=== PATIENT | male | born 2000 | race Caucasian/White ===

== ENCOUNTER 2021-08-17 08:13 | Emergency (ER) | payer SELFPAY ==
--- NOTE | 2021-08-17 08:15 | DI.RAD_ITS ---
Exam(s) XR THUMB RT EXAM: XR THUMB RT CLINICAL HISTORY: laceration. TECHNIQUE: 2D digital imaging was performed of the right finger. Three views were obtained. PA/AP, oblique, and lateral views were obtained. COMPARISON: No exams were available for comparison FINDINGS: BONES: No acute fracture is present. No bony destructive lesion is seen. JOINTS: No dislocation present. SOFT TISSUE: No radiopaque foreign bodies. Soft tissue defect and swelling of the distal thumb. IMPRESSION: No evidence of acute fracture, dislocation, or subluxation. No radiopaque foreign body. DATA REPOSITORY: RADIATION DOSE DELIVERED:
[2021-08-17 08:19] VITALS: BP 161/87; PULSE 113; RESP 16; TEMP 36.4; O2SAT 98
--- NOTE | 2021-08-17 08:30 | ED.GENADUL_ITS ---
Discharge Plan Disposition Patient Disposition: HOME Condition: Stable Discharge Details Clinical Impression: Avulsion of skin of right thumb Primary Care Provider: Unknown,Unknown ED Provider: Young Up Home Meds and New Rx's Prescriptions: No Action No Known Home Meds RF: 0 Discharge Instructions Instructions: Skin Avulsion (ED) Additional Instructions: If you have spreading redness, or severe pain return to the emergency department keep the wound covered until it is healed Medical Decision Making 21 yo male with no chronic medical problems comes in with right thumb laceration. He was repairing a window and cut his right thumb on the glass, it did not shatter and he did not fall or have other injuries. He has a skin tear over the medial side of the thumb that runs vertically. He has full extension and flexion at both joins of the thumb and intact sensation, no palpable foreign body. Will xray to evaluate for possible underlying fracture xray unremarkable, i used 6cc of 2% lidocaine to perform a digital block and cut away a piece of avulsed skin, no underlying laceration, the wound is not s uturable will need to heal by secondary intention. Discussed with pt. Will d/c and return precautions given. He did not want to stay for xray read, will call if vrad sees any concerning findings Differential Diagnosis Differential Diagnosis: laceration, fracture Imaging Data Radiologic Study: Attestation: I personally reviewed and interpreted this imaging study as follows: Imaging: X-Ray My impression: no acute findings HPI General Mode of arrival: ambulatory . Date/Time Provider Initiated Documentation: 08/17/21 08:26 . Limitations to Documentation: no limitations . Information obtained by: patient . History of Present Illness 21 year old M presents to the emergency department with the chief complaint of right thumb laceration, described as moderate, Quality is described as aching, and is localized to the right and upper extremity. Patient reports no radiation. Patient started experiencing this hour(s) (1) and it has been constant. No relieving factors improve symptom(s), No exacerbating factors reported . Patient notes no other symptoms.. Patient did receive the following treatments prior to arrival, none Related Data Home Medications Medication Instructions Recorded Confirmed Unknown [No Known Home Meds] 08/17/21 08/17/21 Allergies Allergy/AdvReac Type Severity Reaction Status Date / Time No Known Allergies Allergy Unverified 08/17/21 08:25 General Stated Complaint: Laceration JULIAN: 4 Review of Systems All systems reviewed & are unremarkable except as noted in HPI and below Constitutional Constitutional: Denies chills, Denies fever(s) and Denies weakness Cardiovascular Cardiovascular: Denies chest pain and Denies dyspnea Respiratory Respiratory: Denies cough and Denies dyspnea Gastrointestinal Gastrointestinal: Denies abdominal pain, Denies nausea and Denies vomiting Musculoskeletal Musculoskeletal: Denies joint swelling Neurologic Neurologic: Denies weakness Psychiatric Psychiatric: Denies depression [facility] Social History Smoking risk assessment performed?: No Substance use type: amphetamines Exam Const General: no acute distress Orientation: alert HENMT Head: normal to inspection Ears: external ears normal General nose exam: external nose normal Mouth: moist mucous membranes Eyes General: appearance normal, both eyes and all related structures Neck Neck: normal visual inspection Resp Effort & Inspection: normal respiratory effort and able to speak in complete sentences Cardio Rate: regular rate Skin General skin exam: no rashes or lesions noted Neuro General: patient alert and patient oriented x3 Extrem General: full ROM and capillary refill normal Psych Mental Status: mental status grossly normal Course Vital Signs Vital signs: Vital Signs Temperature 36.4 C L 08/17/21 08:19 Pulse 113 H 08/17/21 08:19 Respiratory Rate 16 08/17/21 08:19 Blood Pressure 161/87 H 08/17/21 08:19 Pulse Oximetry 98 08/17/21 08:19 Temperature 36.4 C L 08/17/21 08:19 Pulse 113 H 08/17/21 08:19 Respiratory Rate 16 08/17/21 08:19 Respiratory Effort 08/17/21 08:19 Blood Pressure 161/87 H 08/17/21 08:19 Blood Pressure Position Sitting 08/17/21 08:19 Pulse Oximetry 98 08/17/21 08:19 Oxygen Delivery Method Room Air 08/17/21 08:19 Oxygen Flow Rate 0 08/17/21 08:19 Pain Level 6 08/17/21 08:19 PAWSS Have you Been Recently Intoxicated or Drunk Within the Last 30 days?: Yes Have you Ever Experienced Previous Episodes of Alcohol Withdrawal?: No Have you ever Experienced Withdrawal Seizures?: No Have you ever Experienced Delirium Tremens(DT)s?: No Have you ever undergone Alcohol Rehabilitation Treatment (i.e, inpt ot outpatient treatment programs)?: No Have you ever Experienced Blackouts?: No Have you ever Combined Alcohol with other Downers within the last 90 days?: No Have you ever Combined Alcohol with any other Substance of Abuse during the last 90 days?: Yes Positive Blood Alcohol level on Presentation? [PCS.BAL]: No Evidence of Increased Autonomic Activity (i.e. HR>120, tremor, sweating, agitation, nausea)?: No Result: 3
[2021-08-17] MEDS: Tetanus & Diphtheria Tox,ADULT 0.5 ML VIAL IM (09:37)
[2021-08-17 09:41] VITALS: PULSE 68; RESP 12; O2SAT 98
--- NOTE | 2021-08-17 10:07 | DI.VRAD_ITS ---
PROCEDURE INFORMATION: Exam: XR Right Finger(s) Exam date and time: 08/17/2021 8:30 AM Age: 21 years old Clinical indication: Injury or trauma; Other: Laceration; Wound; Finger; Right; Thumb TECHNIQUE: Imaging protocol: XR Right fingers. Views: Minimum 2 views. COMPARISON: No relevant prior studies available. FINDINGS: Bones/joints: Normal. No fracture, dislocation or osseous abnormality. No arthropathic changes. Soft tissues: Distal soft tissue laceration is visible. There is no foreign body within the soft tissues. IMPRESSION: Soft tissue trauma. No evidence of fracture. Dictated and Authenticated by: Ralph Alicea MD. Ordering:RAZIA Vidal MD
== END 2021-08-17 09:46 | disposition home or self-care (01) ==
PROVIDERS: Emergency Provider Emergency Medicine
DX: S61.011A Laceration without foreign body of right thumb without damage to nail, initial encounter (principal); W25.XXXA Contact with sharp glass, initial encounter
CPT/HCPCS: 64450; 99281; 73140; J3490

== ENCOUNTER 2022-04-09 12:27 | Emergency (ER) | payer MEDICAID, SELFPAY ==
[2022-04-09] VITALS (12 sets, daily range): BP systolic 99–109; BP diastolic 52–83; PULSE 90–106; RESP 14–21; TEMP 37.2; O2SAT 96–97
--- NOTE | 2022-04-09 12:30 | RT.EKG_ITS ---
APPROVED REPORT Exam: Resting ECG Reason for Exam: chest pain Patient Location: E HR:92 bpm ECG Measurements Heart Rate 92 AXIS UT 142 P 69 QRSd 87 QRS 67 QT 346 T 36 QTc 429 Conclusion Sinus rhythm...normal P axis, V-rate 60- 99
--- NOTE | 2022-04-09 12:39 | ED.GENADUL_ITS ---
Discharge Plan Disposition Patient Disposition: AGAINST MEDICAL ADVICE Condition: Serious Discharge Details Clinical Impression: Chest pain, Pneumonia Primary Care Provider: Unknown,Unknown ED Provider: Bryson Trammell Home Meds and New Rx's Prescriptions: New doxycycline hyclate 100 mg capsule 100 mg PO BID Qty: 20 0RF Discharge Instructions Instructions: Chest Pain (ED), Pneumonia (ED) Medical Decision Making 21-year-old gentleman, current smoker, unvaccinated for COVID, presents to the ER reporting chest pain and paresthesias in his extremities with the chest pain. This began last night at rest, lasted for approximately 40 minutes and then resolved. Was present again this morning, and then present again on his way to the ER but has resolved at this time. We will treat his most recent symptoms as time zero and plans to initiate cardiac work-up including a delta troponin. We will also obtain a COVID, flu, RSV. Upon evaluation patient is asking how long this will take, questioning why he needs to have an IV in place, and stating that he does not want to wait here for a delta troponin. I explained to the patient why a delta troponin was necessary and he is initially now agreeable. Given low suspicion for ACS, patient denies any family cardiac history, etc., will hold on any aspirin. Initial laboratory values reveal a white blood cell count of 15.06, hemoglobin 13.1 hematocrit 40.0 platelet count 496. Electrolytes reveal sodium 143 potassium 4.4 creatinine 0.8 GFR greater than 60, magnesium 2.1, initial troponin less than 50, alcohol less than 3. Patient unable to to provide a urine sample. COVID, flu, RSV negative. Chest x-ray concerning for small infiltrate in the left midlung. Given his chest pain, leukocytosis, will treat for pneumonia. 100 p.o. doxycycline given. Patient tolerating p.o. intake without difficulty. Patient now comes to the exam room door, saying he would like to leave, threatening to remove his IV. I explained to him that if he leaves he will be leaving AGAINST MEDICAL ADVICE as I do believe obtaining a delta troponin is prudent. I would like to provide him with antibiotics that he does not want to wait for this, I will fax antibiotics to his pharmacy. Patient is satting 96% on room air. Patient appears clinically sober, is of sound mind, and based upon my clinical examination has the capacity to make their own decisions. We have offered treatment options and discussed the the risks and benefits of these options and refusing these options, including and/or disability specific to the patient's pathology. Pt is able to discuss and understands the risks and benefits and alternatives of treatment and refusing treatment. The patient still chooses to leave before evaluation and treatment can be completed AGAINST MEDICAL ADVICE. Standard discharge and return precautions were provided. Patient understands, is agreeable to this plan, and has no additional questions or concerns upon leaving AMA. This documentation was generated using Reppifyation system, please disregard any oddities of phrase or misspellings. I did also place the patient on the care management list to help expedite outpatient primary care follow-up Medical Records Medical records reviewed: Yes I reviewed the patient's medical records. Imaging Data Radiologic Study: Attestation: I personally reviewed and interpreted this imaging study as follows: Imaging: X-Ray Radiologist's impression: This report is currently processing and HAS NOT BEEN OFFICIALLY SIGNED BY THE PHYSICIAN - ESTIMATED TIME OF APPROVAL IS 04/09/2022 14:07. Exam(s) XR CHEST 2V PA LATERAL EXAM: XR CHEST 2V PA LATERAL CLINICAL HISTORY: chest pain TECHNIQUE: 2D digital imaging was performed of the chest. Three images were obtained. PA and lateral views were obtained. COMPARISON: No exams were available for comparison FINDINGS: MEDIASTINUM: Normal. HEART: Normal. PULMONARY VASCULATURE: Normal. LUNGS: There is a faint infiltrate in the left mid lung. PLEURAL SPACE: No pleural effusion or pneumothorax. BONE:Within normal limits for the patient's age. OTHER FINDINGS:Normal. IMPRESSION: Small infiltrate in the left mid lung. This may represent atelectasis or pneumonia. Please correlate clinically. Lab Data Lab results reviewed: Yes I reviewed the patient's lab results. Labs: Laboratory Tests Range/Units 04/09/22 04/09/22 04/09/22 12:43 12:43 13:33 WBC (4.4-10.8) 10^3/uL 15.06 H RBC (4.36-5.78) 10^6/uL 4.56 Hgb (13.5-17.5) g/dL 13.1 L Hct (40.0-50.0) % 40.0 MCV (80-95) fL 88 MCH (27.0-33.0) pg 28.7 MCHC (32.0-36.0) % 32.8 RDW (11.8-14.1) % 14.0 Plt Count (130-400) 10^3/uL 496 H MPV (8.0-11.0) fL 9.1 Immature Gran % 0.9 Neutrophils % 82.2 Lymphocytes % 10.6 Monocytes % 4.9 Eosinophils % 0.9 Basophils % 0.5 Nucleated RBC % (0.0-0.3) % 0.0 Absolute Neutrophils (1.2-6.7) 10^3/uL 12.38 H Absolute Lymphocytes (1.2-3.4) 10^3/uL 1.60 Absolute Monocytes (0.1-0.8) 10^3/uL 0.74 Absolute Eosinophils (0.0-0.7) 10^3/uL 0.14 Absolute Basophils (0.0-0.2) 10^3/uL 0.08 Sodium (136-145) mmol/L 143 Potassium (3.5-5.1) mmol/L 4.4 Chloride (98-107) mmol/L 109 H Carbon Dioxide (21.0-32.0) mmol/L 25.7 Anion Gap (3-11) mmol/L 8.3 BUN (7-18) mg/dL 7 Creatinine (0.70-1.30) mg/dL 0.8 Estimated GFR/1.73 m2 (mL/min/1.73m2) >= 60.00 Glucose (74-106) mg/dL 120 H Calcium (8.5-10.1) mg/dL 9.2 Magnesium (1.8-2.4) mg/dL 2.1 Total Bilirubin (0.2-1.0) mg/dL 0.2 AST (15-37) U/L 17 ALT (16-63) U/L 29 Alkaline Phosphatase (46-116) U/L 95 Troponin I (<or=60) ng/L < 50 Total Protein (6.4-8.2) g/dL 7.5 Albumin (3.4-5.0) g/dL 4.0 Ethyl Alcohol (<10) mg/dL < 3.0 COVID-19 Source Not Applicable SARS-CoV-2 (PCR) (Negative) Negative Influenza Type A (PCR) (Negative) Negative Influenza Type B (PCR) (Negative) Negative RSV (PCR) (Negative) Negative ECG Data Attestation: I personally reviewed and interpreted this ECG (s) as follows: Interpretation: Please see official report by Dr. Snowden. Sinus rhythm, ventricular rate of 92, no STEMI HPI General Mode of arrival: ambulatory . Date/Time Provider Initiated Documentation: 04/09/22 12:38 . Limitations to Documentation: no limitations . Information obtained by: patient . History of Present Illness 21 year old M presents to the emergency department with the chief complaint of chest pain, described as moderate, with intensity rated at 4. Quality is described as aching, and is localized to the chest. Patient reports no radiation. Patient started experiencing this hour(s) (16) and it has been intermittent. No relieving factors improve symptom(s), No exacerbating factors reported . Patient notes chest pain and other (Extremity paresthesias). Patient did receive the following treatments prior to arrival, none Related Data Home Medications Medication Instructions Recorded Confirmed doxycycline hyclate 100 mg capsule 100 mg PO BID #20 caps 04/09/22 Previous Rx's Medication Instructions Recorded doxycycline hyclate 100 mg capsule 100 mg PO BID #20 caps 04/09/22 Allergies Allergy/AdvReac Type Severity Reaction Status Date / Time No Known Allergies Allergy Unverified 04/09/22 12:47 General JULIAN: 4 Review of Systems Constitutional Constitutional: Denies fever(s), Denies headache(s) and Denies weakness ENT Ears, Nose, Mouth, and Throat: Denies headache(s) and Denies neck pain Cardiovascular Cardiovascular: Reports chest pain and Denies dyspnea Respiratory Respiratory: Denies cough and Denies dyspnea Gastrointestinal Gastrointestinal: Denies abdominal pain, Denies diarrhea, Denies nausea and Denies vomiting Musculoskeletal Musculoskeletal: Denies neck pain, Denies numbness, Denies stiffness and Reports tingling Integumentary/Breasts Skin/Breast: Denies rash Neurologic Neurologic: Denies headache(s), Denies numbness, Reports tingling and Denies weakness PFSH All Active Problems (Updated 04/09/22 @ 15:22 by CHRISTELLE Rose) Avulsion of skin of right thumb (Acute) Chest pain (Acute) Pneumonia (Acute) Social History Smoking/Tobacco Use Status: Current every day Tobacco Type: cigarettes Smoking risk assessment performed?: Yes Alcohol Intake: current Alcohol Intake frequency: a few times a week Alcohol type: beer Drug use: Daily Substance use type: marijuana Do you feel safe at home: Yes Do you feel safe in your relationship?: Yes Exam Const General: cooperative, healthy appearing, comfortable and no acute distress Orientation: alert, awake and oriented x3 HENMT Head: normal to inspection, normocephalic and atraumatic Face and sinus: normal facial exam Mouth: moist mucous membranes Eyes General: appearance normal, both eyes and all related structures Conjunctivae: conjunctivae normal Neck Neck: normal visual inspection, full ROM, no meningeal signs, trachea midline, supple and nontender Resp Effort & Inspection: normal respiratory effort and able to speak in complete sentences Auscultation: clear to auscultation bilaterally Cardio Rate: regular rate Rhythm: regular rhythm GI Palpation: soft and nontender Back/Spine/Pelvis Back: No back tenderness Skin General skin exam: no rashes or lesions noted Neuro General: patient alert, patient awake, patient oriented x3, moves all extremities and no focal motor deficits Cognition: normal cognition Speech: speech normal Gait: normal gait Motor: muscle tone normal throughout Sensory Exam: no sensory deficits noted Extrem General: normal to inspection, full ROM, capillary refill normal, no pedal edema and no calf tenderness Psych Appearance: grossly normal Mental Status: mental status grossly normal
--- NOTE | 2022-04-09 13:00 | DI.RAD_ITS ---
Exam(s) XR CHEST 2V PA LATERAL EXAM: XR CHEST 2V PA LATERAL CLINICAL HISTORY: chest pain TECHNIQUE: 2D digital imaging was performed of the chest. Three images were obtained. PA and later al views were obtained. COMPARISON: No exams were available for comparison FINDINGS: MEDIASTINUM: Normal. HEART: Normal. PULMONARY VASCULATURE: Normal. LUNGS: There is a faint infiltrate in the left mid lung. PLEURAL SPACE: No pleural effusion or pneumothorax. BONE:Within normal limits for the patient's age. OTHER FINDINGS:Normal. IMPRESSION: Small infiltrate in the left mid lung. This may represent atelectasis or pneumonia. Please correlat e clinically. DATA REPOSITORY: RADIATION DOSE DELIVERED:
[2022-04-09 13:09] LABS: Abs Immature Grans 0.14 10^3/uL (0.0-0.06); Absolute Monocyte Count 0.74 10^3/uL (0.1-0.8); Absolute Neutrophil Count 12.38 10^3/uL (1.2-6.7); Basophils % 0.5; Eosinophils % 0.9; HGB 13.1 g/dL (13.5-17.5); Immature Grans % 0.9; Lymphocytes % 10.6; MCH 28.7 pg (27.0-33.0); MCHC 32.8 % (32.0-36.0); MCV 88 fL (80-95); MPV 9.1 fL (8.0-11.0); Monocytes % 4.9; Neutrophils % 82.2; Platelet Count 496 10^3/uL (130-400); RBC 4.56 10^6/uL (4.36-5.78); RDW-SD 45.4 fL; WBC 15.06 10^3/uL (4.4-10.8)
[2022-04-09 13:10] LABS: Absolute Basophil Count 0.08 10^3/uL (0.0-0.2); Absolute Eosinophil Count 0.14 10^3/uL (0.0-0.7)
[2022-04-09 13:27] LABS: ALT 29 U/L (16-63); AST 17 U/L (15-37); Alkaline Phosphatase 95 U/L (46-116); Anion Gap 8.3 mmol/L (3-11); BUN 7 mg/dL (7-18); Bilirubin, Total 0.2 mg/dL (0.2-1.0); CO2 25.7 mmol/L (21.0-32.0); CREATININE 0.8 mg/dL (0.70-1.30); Calcium 9.2 mg/dL (8.5-10.1); Chloride 109 mmol/L (98-107); Glucose 120 mg/dL (74-106); Magnesium 2.1 mg/dL (1.8-2.4); Potassium 4.4 mmol/L (3.5-5.1); Sodium 143 mmol/L (136-145); Total Protein 7.5 g/dL (6.4-8.2); Troponin I < 50 ng/L (<or=60)
[2022-04-09 13:29] LABS: ETHANOL BLOOD < 3.0 mg/dL (<10)
[2022-04-09 14:13] LABS: COVID-19 PCR Negative (Negative); Influenza A PCR Negative (Negative); Influenza B PCR Negative (Negative); RSV PCR Negative (Negative)
--- NOTE | 2022-04-09 14:14 | NUR.NOTE ---
Nursing Note: Referral given to Care Management needs PCP, establish care, routine follow up. Sheila Smith
[2022-04-09] MEDS: Doxycycline Hyclate 100 MG CAP PO (14:18)
--- NOTE | 2022-04-11 15:20 | PDOC.ERCMACT ---
- If Service Date Differs Date of service: 04/11/22 Time of Service: 15:20 Care Management Activity Note Rob is seen in the ED for chest pain. At the request of ED provider, CM coordinates a referral to KYM Smith, of [facility], on-call provider, to assist Rob in obtaining a routine follow up appointment and in establishing care with a PCP.
== END 2022-04-09 14:49 | disposition left against medical advice (07) ==
PROVIDERS: Emergency Provider Physician Assistant
DX: R07.9 Chest pain, unspecified (principal); J18.9 Pneumonia, unspecified organism; F17.210 Nicotine dependence, cigarettes, uncomplicated; Z53.29 Procedure and treatment not carried out because of patient's decision for other reasons; Z20.822 Contact with and (suspected) exposure to COVID-19; Z28.310 Unvaccinated for COVID-19
CPT/HCPCS: 36415; 80053; 87637; 93005; 99284; 71046; 80320; 83735; 84484; 85025; 93010